=== PATIENT | male | born 1960 | race Caucasian/White ===

== ENCOUNTER → 2021-07-30 | Outpatient (CLI) | payer OTHER ==
--- NOTE | 2021-07-31 09:38 | KCIC ---
EXAMINATION: MRI RIGHT LOWER EXTREMITY JOINT WITHOUT INDICATIONS: Right knee pain, ACL injury with repair in 2004. Chronic knee pain, worse recently. Ins tability and swelling. TECHNIQUE: Multiplanar multisequence MRI of the right knee was obtained without contrast. COMPARISON: None. FINDINGS: MENISCI: There are macerated tears of both menisci with diminutive posterior horn and body tissue. LIGAMENTS: Surgical changes of ACL reconstruction. 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 The PCL is thickened but intact. MCL and LCL complex are intact. EXTENSOR MECHANISM: The quadriceps and patellar tendons are intact. Fat pads are normal. Retinacula are intact. BONES AND CARTILAGE: There is extensive deep partial and full-thickness cartilage loss throughout th e weightbearing medial compartment. Subchondral marrow edema in the medial femoral condyle is likely reactive. There is degenerative remodeling of the articular surfaces. There is full-thickness cartilage loss throughout the posterior weightbearing lateral compartment and deep partial-thickness cartilage loss elsewhere in the lateral compartment. Mild subchondral marrow edema in the lateral tibial plateau. There is superficial and deep partial-thickness cartilage loss along the patella, greatest around the median ridge where there are small subchondral cysts. Trochlear cartilage is grossly intact. There are large tricompartmental osteophytes. OTHER: Large joint effusion with synovitis. Large multilobulated cystic structure along along the po pliteus tendon sheath measuring about 2.5 x 3.4 x 3.4 cm. This contains multiple large ossified jacqui s, the largest measuring 1.6 cm. This extends along or within the popliteus muscle. There is a large complex multi lobulated ganglion cyst at the posterior joint posterior to the ACL and PCL. This measu res overall 3.6 x 3.4 x 4.5 cm. There are additional smaller ganglion cyst at the origins of the medi al and lateral head of the gastrocnemius tendons. Diffuse intramuscular and subcutaneous edema. IMPRESSION: 1. 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 2. Macerated tears of both menisci. 3. Tricompartmental cartilage loss, greatest in the medial and lateral compartments where there is ex tensive deep partial and full-thickness cartilage loss. 4. Multiple large multilobulated ganglion cysts along the posterior knee. One of these along the popl iteus tendon contains large ossified bodies. 5. Large joint effusion with synovitis. Electronically signed by: Delilah Perry MD (07/31/2021 9:36 AM) [id number]
== END ==
LOC: KCIC MRI 15:05
PROVIDERS: ATTEND Family Medicine
DX: S83.281A Other tear of lateral meniscus, current injury, right knee, initial encounter (principal); S83.241A Other tear of medial meniscus, current injury, right knee, initial encounter; M25.461 Effusion, right knee; M65.861 Other synovitis and tenosynovitis, right lower leg; M67.461 Ganglion, right knee; M25.861 Other specified joint disorders, right knee; Z98.890 Other specified postprocedural states; X58.XXXA Exposure to other specified factors, initial encounter; Y93.89 Activity, other specified; Y92.89 Other specified places as the place of occurrence of the external cause; Y99.8 Other external cause status
CPT/HCPCS: 73721